=== PATIENT | female | born 1965 | race Caucasian/White ===

== ENCOUNTER 2020-03-25 05:35 | Emergency (ER) | payer OTHER, SELFPAY ==
[2020-03-25 05:46] VITALS: BP 126/73; BP 130/90; PULSE 84; PULSE 88; RESP 24; TEMP 36.4; O2SAT 100; BMI 36.1
--- NOTE | 2020-03-25 05:54 | ED_ITS ---
HPI - Headache General Chief Complaint: Headache Stated Complaint: headache Time Seen by Provider: 03/25/20 05:54 Source: patient Mode of arrival: EMS History of Present Illness HPI Narrative: This is a 55-year-old female who suffers from migraines with aura and is prescribed propanolol that she states generally works however she woke up this morning and did not have enough time to get her propanolol when she stated that she developed a migraine that ?felt like her head was going to explode?. She states she ate a banana along with the Zofran and the propanolol in but then states that she was having some difficulty getting up and made decision to call EMS. Patient has vomited twice since her initial call to EMS but otherwise denies any recent fevers, chills, sick contacts and was last tested for COVID-19 the of the month and was negative at that time. Otherwise, she denies any GI or symptoms. At this time, patient states that all of her symptoms have resolved she does has a little bit of residual pain but otherwise denies any photosensitivity or auditory sensitivity Related Data Allergies Allergy/AdvReac Type Severity Reaction Status Date / Time prochlorperazine Allergy Severe ANAPHYLAXIS Verified 03/25/20 06:15 [From COMPAZINE] Compazine Allergy Unknown anaphylaxis Uncoded 03/01/18 00:00 Review of Systems Review of Systems: Pertinent positives and negatives as stated in HPI 10 point review systems otherwise negative. PMFSH Past Medical History Source: nursing notes reviewed Medical History Cholecystitis Migraines Vascular disease Social History Social History Smoking Status: Never smoker Use of substances other than those prescribed or required for medical reasons: No Advance Directives: No Physical Exam Vital Signs: Vital Signs: Last Vital Signs Temp 97.5 F 03/25/20 05:46 Pulse 84 03/25/20 05:46 Resp 24 H 03/25/20 05:46 BP 126/73 03/25/20 05:46 Pulse Ox 100 03/25/20 05:46 Body Mass Index 36.1 VITAL SIGNS: Reviewed. GENERAL: Well developed, well nourished, in no acute distress. HEAD: Normocephalic/atraumatic, EYES: PERRLA, EOMI intact without pain, no nystagmus/pallor/icterus noted OROPHARYNX: no oral lesions noted, posterior pharynx clear and non-erythematous without noted tonsillar enlargement/erythema/exudates NECK: Supple, no adenopathy LUNGS: Normal breath sounds. No adventitious sounds or accessory muscle use. SpO2<100> CARDIOVASCULAR: Regular rate and rhythm without noted murmurs, no JVD or lower extremity edema. ABDOMEN: Soft, non-tender, non-distended with bowel sounds. No rigidity. No guarding. No palpable masses or hernias noted NEUROLOGIC: Alert and oriented x 4. Strength and sensation to light touch were grossly intact x 4, no facial asymmetry, no pronator drift, cerebellar testing without deficits, cranial nerves 2-12 are grossly intact.. Course Course Course Narrative: This is a 55-year-old female with history and clinical presentation consistent with acute onset her migraines that is a typical nature and progression for her but she was unable to get to her medication. Will evaluate for other etiologies such as infection, anemia. On review of all investigations there are no acute findings and the patient is feeling much better. All results and findings were discussed with her bedside and she was discharged in stable condition. MDM - Headache Lab Data Result diagrams: 03/25/20 06:43 03/25/20 06:43 Labs: Lab Results 03/25/20 03/25/20 03/25/20 Range/Units 06:43 06:43 06:43 WBC 7.7 (4.8-10.8) X10*3/uL RBC 4.33 (4.20-5.50) X10*6/uL Hgb 13.3 (12.0-16.0) g/dl Hct 39.3 (37-47) % MCV 90.8 (80-98) fL MCH 30.7 (27.0-33.0) pg MCHC 33.8 (31.0-35.0) g/dl RDW 12.4 (11.0-16.0) % Plt Count 188 (160-400) X10*3/uL MPV 10.1 (9.4-12.3) fL Immature Gran % (Auto) 0.4 (0.0-0.4) % Neut % (Auto) 70.6 (45-73) % Lymph % (Auto) 21.4 (20-40) % [place] % (Auto) 6.6 (2-11) % Eos % (Auto) 0.7 (0-4) % Baso % (Auto) 0.3 (0-2) % Lymph # (Auto) 1.6 (1.2-4.9) X10*3/uL [place] # (Auto) 0.5 (0.1-1.2) X10*3/uL Eos # (Auto) 0.1 (0.0-0.4) X10*3/uL Baso # (Auto) 0.0 (0.0-0.2) X10*3/uL Abs Immat Gran (auto) 0.03 (0.00-0.03) X10*3/uL Absolute Neuts (auto) 5.4 (2.0-8.3) X10*3/uL Absolute Nucleated RBC 0.000 (0.0-0.012) X10*3/uL Nucleated RBC % (auto) 0.0 (0.0-0.2) /100WBC Sodium 141 (135-145) mmol/L Potassium 3.8 (3.3-5.1) mmol/l Chloride 108 (96-108) mmol/L Carbon Dioxide 27 (22-29) mmol/L Anion Gap 10 L (12-20) BUN 14 (9-16) mg/dL Creatinine 0.77 (0.5-1.4) mg/dL Estim Creat Clear Calc 90.3 Estimated GFR > 60 Random Glucose 109 (60-115) mg/dL Calcium 9.0 (8.4-10.2) mg/dL Total Bilirubin 0.3 (0.0-1.0) mg/dL AST 15 (5-31) U/L ALT 17 (0-31) U/L Alkaline Phosphatase 68 (39-117) U/L Total Protein 6.8 (6.5-8.0) g/dL Albumin 4.3 (3.5-5.0) g/dL Urine Color YELLOW Urine Appearance CLEAR Urine pH 7.0 (5.0-8.0) Ur Specific [place] 1.015 (1.005-1.025) Urine Protein NEG (NEG-TRACE) MG/DL Urine Glucose (UA) NEG (NEG) MG/DL Urine Ketones NEG (NEG) MG/DL Urine Blood NEG (NEG) Urine Nitrite NEG (NEG) Ur Leukocyte Esterase NEG (NEG) Discharge Plan Discharge Clinical Impression: Migraine Qualifiers: Migraine type: with aura Status migrainosus presence: without status migrainosus Intractability: not intractable Qualified Code(s): G43.109 - Migraine with aura, not intractable, without status migrainosus Patient Disposition: Home, Self-Care Instructions: Migraine Headache (ED) Additional Instructions: Please do not hesitate to return to the emergency department should you develop any acute worsening of her symptoms. Please follow-up with your primary care provider at earliest convenience, 2-3 days. Referrals: Physician,Unknown [Primary Care Provider] - 2 days
[2020-03-25] MEDS: Acetaminophen 325 MG TABLET 975 MG PO (06:23)
[2020-03-25] MEDS: Ketorolac Tromethamine 15 MG/ML VIAL IM (06:23)
[2020-03-25 06:52] LABS: MANUAL DIFF FLAG NO
[2020-03-25 06:53] LABS: Basophils Percent Auto 0.3 % (0-2); Eosinophils Absolute Auto 0.1 X10*3/uL (0.0-0.4); Eosinophils Percent Auto 0.7 % (0-4); Hematocrit 39.3 % (37-47); Hemoglobin 13.3 g/dl (12.0-16.0); Imm Gran Abs Auto 0.03 X10*3/uL (0.00-0.03); Imm Gran Pct Auto 0.4 % (0.0-0.4); Lymphocytes Absolute Auto 1.6 X10*3/uL (1.2-4.9); Lymphocytes Percent Auto 21.4 % (20-40); Mean Corpuscular HGB Conc 33.8 g/dl (31.0-35.0); Mean Corpuscular Hemoglobin 30.7 pg (27.0-33.0); Mean Corpuscular Volume 90.8 fL (80-98); Mean Platelet Volume 10.1 fL (9.4-12.3); Monocytes Absolute Auto 0.5 X10*3/uL (0.1-1.2); Monocytes Percent Auto 6.6 % (2-11); Neutrophils Absolute Auto 5.4 X10*3/uL (2.0-8.3); Neutrophils Percent Auto 70.6 % (45-73); Platelet Count 188 X10*3/uL (160-400); Red Blood Count 4.33 X10*6/uL (4.20-5.50); Red Cell Distribution Width 12.4 % (11.0-16.0); White Blood Count 7.7 X10*3/uL (4.8-10.8)
[2020-03-25 06:54] LABS: Glucose Urine UA NEG (NEG); Leukocyte Esterase Urine NEG (NEG); Nitrite Urine NEG (NEG); Specific Gravity - Urine 1.015 (1.005-1.025); Urine Blood NEG (NEG); Urine Ketones NEG (NEG); Urine Protein NEG (NEG-TRACE)
[2020-03-25 06:57] LABS: Appearance Urine CLEAR; Color Urine YELLOW
[2020-03-25 07:16] LABS: Alanine Aminotransferase 17 U/L (0-31); Albumin Level 4.3 g/dL (3.5-5.0); Alkaline Phosphatase 68 U/L (39-117); Anion Gap 10 (12-20); Aspartate Amino Transferase 15 U/L (5-31); Bilirubin Total 0.3 mg/dL (0.0-1.0); Blood Urea Nitrogen 14 mg/dL (9-16); Carbon Dioxide 27 mmol/L (22-29); Chloride 108 mmol/L (96-108); Creatinine Clr Calc Pharmacy 90.3; Estimated Glomerular Filt Rate > 60; Glucose Random 109 mg/dL (60-115); Potassium 3.8 mmol/l (3.3-5.1); Sodium 141 mmol/L (135-145); Total Protein 6.8 g/dL (6.5-8.0)
[2020-03-25 07:27] LABS: Amphetamine Screen Urine Not Detected (Not Detect); Barbiturates, Urine Not Detected (Not Detect); Benzodiazepines Screen Urine Not Detected (Not Detect); Cannabinoid Screen Urine Not Detected (Not Detect); Cocaine Screen Urine Not Detected (Not Detect); Opiate Screen Urine Not Detected (Not Detect); Phencyclidine Screen Urine Not Detected (Not Detect)
== END 2020-03-25 07:33 | disposition home or self-care (01) ==
PROVIDERS: Emergency Provider Student in an Organized Health Care Education/Training Program
DX: G43.109 Migraine with aura, not intractable, without status migrainosus (principal); Z79.899 Other long term (current) drug therapy
CPT/HCPCS: 36415; 80053; 80307; 81003; 85025; 96372; 99284; J1885

== ENCOUNTER 2021-10-06 02:18 | Emergency (ER) | payer OTHER, SELFPAY ==
[2021-10-06 02:30] VITALS: BP 118/68; PULSE 86; O2SAT 97
[2021-10-06 02:40] VITALS: BP 104/71; PULSE 66; RESP 18; TEMP 36.5; O2SAT 99; BMI 38.4
--- NOTE | 2021-10-06 02:53 | ED_ITS ---
HPI - Dizziness General Chief Complaint: Dizziness Stated Complaint: DIZZINESS, NAUSEA Time Seen by Provider: 10/06/21 02:53 Source: patient Mode of arrival: EMS Limitations: no limitations History of Present Illness HPI Narrative: Patient with no significant past medical history diagnosed with prediabetes a blood sugar of 186 postprandial pain feeling nauseated dizziness poor balance all day Cimzia very anxious feels thirsty supposed to have lab workup done earlier today which she missed at this time patient denies any dizziness Related Data Allergies Allergy/AdvReac Type Severity Reaction Status Date / Time prochlorperazine Allergy Severe ANAPHYLAXIS Verified 10/06/21 02:42 [From COMPAZINE] Compazine Allergy Unknown anaphylaxis Uncoded 10/06/21 02:42 Review of Systems Review of Systems: Yes all other systems are reviewed and are negative [facility] Past Medical History Medical History Cholecystitis Migraines Vascular disease Social History Social History Advance Directives: No Physical Exam Vital Signs: Vital Signs: Last Vital Signs Temp 97.7 F 10/06/21 02:40 Pulse 72 10/06/21 03:55 Resp 20 10/06/21 03:55 BP 123/61 10/06/21 03:55 Pulse Ox 96 10/06/21 03:55 O2 Del Method 10/06/21 03:55 BMI result Body Mass Index 38.4 Appearance: Alert. Oriented X3. No acute distress. Anxious Eyes: PERRLA, No Nystagmus ENT: Pharynx normal. Oral Mucosa moist Neck: Normal inspection. Neck supple. CVS: Normal heart rate and rhythm. Pulses normal. Respiratory: No respiratory distress. Equal air entry bilateral, no wheezing/rales/rhonchi Abdomen: Soft and nontender. Bowel sounds are present, no mass palpable, no CVA tenderness Skin: Skin warm and dry. Normal skin color. Normal skin turgor. Extremities: No lower extremity edema. No calf tenderness Neuro: Oriented X 3. No motor deficit. No sensory deficit.No cerebellar signs , cranial nerves II-XII intact MDM - Dizziness MDM Narrative Medical decision making narrative: 05:00 Patient on wrist specific complaints orthostatics normal EKG without any acute ischemic changes blood sugar 122 urine negative for glycosuria. Patient seems very anxious at this time has a follow-up plan with PCP will discharge patient home Lab Data Attestation: I reviewed the patient's lab results. Labs: Lab Results 10/06/21 10/06/21 10/06/21 Range/Units 03:32 03:40 04:47 POC Glucose 122 H (60-115) mg/dL Urine Color YELLOW Urine Appearance CLEAR Urine pH 7.0 (5.0-8.0) Ur Specific [place] <= 1.005 (1.005-1.025) Urine Protein NEG (NEG-TRACE) MG/DL Urine Glucose (UA) NEG (NEG) MG/DL Urine Ketones NEG (NEG) MG/DL Urine Blood NEG (NEG) Urine Nitrite NEG (NEG) Ur Leukocyte Esterase NEG (NEG) COVID-19 ([facility]ATH) Negative (Negative) COVID-19 Clin Com See Note Discharge Plan Discharge Clinical Impression: Pre-diabetes Patient Disposition: Home, Self-Care Instructions: Prediabetes (ED) Additional Instructions: Drink plenty of fluids Follow with your PCP for further evaluation as scheduled
--- NOTE | 2021-10-06 03:04 | ECG_ITS ---
Test Reason : dizziness Blood Pressure : / mmHG Vent. Rate : 075 BPM Atrial Rate : 075 BPM P-R Int : 136 ms QRS Dur : 078 ms QT Int : 404 ms P-R-T Axes : 028 007 -37 degrees QTc Int : 451 ms Normal sinus rhythm T wave abnormality, consider inferior ischemia Abnormal ECG When compared to the previous EKG of No significant changes seen Referred By: Leo Livingston Electronically Signed By:JORDAN ONEILL MD
[2021-10-06 03:44] VITALS: BP 114/58; PULSE 72
[2021-10-06 03:45] VITALS: BP 123/61; PULSE 72
[2021-10-06 03:48] VITALS: BP 121/58; PULSE 66
[2021-10-06 03:54] LABS: Glucose, Whole Blood 122 mg/dL (60-115)
[2021-10-06 03:55] VITALS: BP 123/61; PULSE 72; RESP 20; O2SAT 96
[2021-10-06 04:12] LABS: COVID-19 Test Negative (Negative); IDNOW Serial# 9DB6401D
[2021-10-06 04:52] LABS: Appearance Urine CLEAR; Color Urine YELLOW; Glucose Urine UA NEG (NEG); Leukocyte Esterase Urine NEG (NEG); Nitrite Urine NEG (NEG); Specific Gravity - Urine <= 1.005 (1.005-1.025); Urine Blood NEG (NEG); Urine Ketones NEG (NEG); Urine Protein NEG (NEG-TRACE)
== END 2021-10-06 05:15 | disposition home or self-care (01) ==
PROVIDERS: Emergency Provider Internal Medicine; PCP Nurse Practitioner Adult Health
DX: R42 Dizziness and giddiness (principal); R73.03 Prediabetes; Z20.822 Contact with and (suspected) exposure to COVID-19; Z79.899 Other long term (current) drug therapy
CPT/HCPCS: 81003; 82947; 87635; 93005; 99283; 99284